=== PATIENT | female | born 1960 | race Caucasian/White ===

== ENCOUNTER 2017-06-09 11:41 | Day surgery (SDC) | payer BC ==
[~2017-06-09] VITALS: Ht 167.6 cm; Wt 113.4 kg
[~2017-06-09 11:41] MED LIST: LO-DOSE ASPIRIN81 M2 PO; TENORMIN50 MG PO; VOLTAREN75 MG PO
[2017-06-09] MEDS ORDERED: XANAX0.25 MG PO (12:48)
[2017-06-09] MEDS ORDERED: SCOPOLAMINE1 EACH TD (12:49)
[2017-06-09 12:50] VITALS: BP 139/68
[2017-06-09 17:20] VITALS: BP 118/74
[2017-06-09 18:20] VITALS: BP 118/72
[2017-06-09 18:50] VITALS: BP 114/72
== END 2017-06-09 19:03 | disposition home or self-care (01) ==
LOC: SDC 11:41
DX: T81.89XA Other complications of procedures, not elsewhere classified, initial encounter (principal); M81.0 Age-related osteoporosis without current pathological fracture; I34.1 Nonrheumatic mitral (valve) prolapse; I10 Essential (primary) hypertension; Z88.0 Allergy status to penicillin; Z79.82 Long term (current) use of aspirin
CPT/HCPCS: J0690; J1170; J1885; J2250; J2405; J3010